=== PATIENT | male | born 1995 | race Caucasian/White ===

== ENCOUNTER 2016-09-11 17:28 | Emergency (ER) | payer OTHER ==
[~2016-09-11] VITALS: Ht 190.5 cm; Wt 83.3 kg
[2016-09-11] MEDS ORDERED: MoRPHine SULFATE 4 MG/ML 1 ML CARP\\VIAL ONE ×2 (17:35→20:00)
[2016-09-11] MEDS ORDERED: ONDANSETRON INJ 2 MG/ML 2 ML VIAL ONE (17:35)
[2016-09-11 17:36] VITALS: Ht 190.5 cm; Wt 83.3 kg
[2016-09-11 17:43] VITALS: O2SAT 100
[2016-09-11] MEDS ORDERED: ONDANSETRON INJ 2 MG/ML 2 ML VIAL IV PRN (17:45)
[2016-09-11] MEDS ORDERED: MoRPHine SULFATE 10 MG/ML CARP/VIAL IV PRN (17:45)
--- NOTE | 2016-09-11 17:52 | EMERGENCY ROOM VISIT NOTE ---
History Report prepared by Lux: Carmelo Noel Under the Supervision of: Dr. Orlando Jarrell M.D. First contact with patient: 17:35 Chief Complaint: ANKLE PAIN Stated Complaint: LF ANKLE FX History of Present Illness The patient is a 20 year old male who presents to the Emergency Room via ambulance with complaints of sudden left ankle pain due to a fall beginning just prior to arrival. The patient states he was playing basketball, when he landed on his left ankle wrong. EMS notes the patient received 100 Fentanyl prior to arrival. The patient notes he has sprained his ankles in the past. He denies any medical problems. The patient denies abdominal pain, hip pain, and any other medical complaints at this time. Review of Systems All systems have been listed, reviewed, and are negative other than those previously mentioned. Please see Additional Medical History Sheet. Past Medical & Surgical Medical Problems: (1) No pertinent past medical history Family History Diabetes mellitus Heart disease Hypertension Social History Marital Status: single Housing Status: lives with roommate Occupation Status: [employer] student Current/Historical Medications Scheduled PRN Hydrocodone/Acetaminophen 5MG/325MG (Dutton 5MG/325MG), 1-2 TABLETS PO Q4 PRN for Pain Allergies Coded Allergies: No Known Allergies (Unverified , 09/11/16) Physical Exam Vital Signs Date Time Temp Pulse Resp B/P Pulse Ox O2 Delivery O2 Flow Rate FiO2 09/11/16 20:39 36.7 89 20 137/78 100 09/11/16 20:07 89 20 137/78 100 Room Air 09/11/16 17:48 62 21 100 09/11/16 17:44 133/91 09/11/16 17:44 65 09/11/16 17:43 100 Room Air 09/11/16 17:43 148/109 09/11/16 17:36 36.7 67 18 146/100 97 Room Air Physical Exam GENERAL: Patient awake, alert, oriented x 3. Patient is in severe distress. Patient is adequately hydrated and well-nourished. SKIN: No erythema, pallor, cyanosis or rash HEENT: Normal head, pupils equal, reactive to light and accommodation. Oral cavity and posterior pharynx appear normal. LUNGS: Clear to auscultation. No wheezes, no rales, no rhonchi. HEART: No murmurs. No gallops. No rubs ABDOMEN: Soft, nontender. PELVIS: Nontender. EXTREMITIES: Left ankle is inverted with tenting of the skin. Pedal pulses present. NEUROLOGIC: Cranial nerves II-XII within normal limits. No gross motor sensory function deficits. Medical Decision & Procedures ER Provider Diagnostic Interpretation: X ray results are stated below per my interpretation and the radiologist's interpretation. LEFT ANKLE MIN 3 VIEWS ROUTINE CLINICAL HISTORY: Left ankle pain status post trauma COMPARISON: None DISCUSSION: There is an ankle dislocation with posterior and medial translation of the talus with respect to the tibia. No definite fractures are visualized in the provided images IMPRESSION: Ankle dislocation. Electronically signed by: Darwin Israel M.D. 09/11/2016 5:55 PM LEFT ANKLE 2 VIEWS CLINICAL HISTORY: Dislocation status post reduction COMPARISON: Earlier in the day DISCUSSION: There is been interval reduction of the previous described dislocation. No fractures are visualized the provided images. There is prominent lateral soft tissue swelling. IMPRESSION: Interval reduction of the previously described dislocation. Electronically signed by: Darwin Israel M.D. 09/11/2016 5:59 PM Medications Administered Medications (Trade) Dose Ordered Sig/Sean Route Start Time Stop Time Status Last Admin Dose Admin Ondansetron HCl (Zofran Inj) 4 mg STK-MED ONCE .ROUTE 09/11/16 17:35 09/11/16 17:37 DC 09/11/16 17:40 4 MG Morphine Sulfate (MoRPHine SULFATE INJ) 8 mg STK-MED ONCE .ROUTE 09/11/16 17:35 09/11/16 17:38 DC 09/11/16 17:41 8 MG Morphine Sulfate (MoRPHine SULFATE INJ) 8 mg STK-MED ONCE .ROUTE 09/11/16 20:00 09/11/16 20:02 DC 09/11/16 20:06 8 MG Acetaminophen/ Hydrocodone Bitart (Dutton 5/325mg Home Pack) 1 homepack UD ONCE PO 09/11/16 20:45 09/11/16 20:46 DC 09/11/16 20:47 1 HOMEPACK Procedure Reduction Procedure Note The patient was given 8 mg IV Morphine for pain relief. I briefly explain the procedure prior to gently pulling on the left foot and reducing the dislocation. Post-reduction x-ray reviews no fracture, dislocation, or subluxation. Pedal pulses were intact both pre and post-reduction. Patient tolerated procedure well and had almost complete relief of pain. ED Course 1735: Past medical records reviewed. The patient was evaluated in room C10. A complete history and physical examination was performed. 1744: Ordered Zofran Inj 4 mg IV, Morphine Sulfate 8 mg IV. 1819: I spoke to the patient's mother and updated her over the phone at this time. 1844: I spoke to [facility] (Orthopedic Surgery) about the patient's case, and he recommended placing the patient in a stirrup splint. He stated to have the patient call tomorrow morning for an appointment on Thursday. 1856: Reevaluated and updated the patient at this time. I explained the instructions for using the splint, crutches, and ice with the patient. 2032: Upon reevaluation, the patient appeared to have improvement of his symptoms. I discussed today's findings with him. He verbalized agreement of the treatment plan. The patient was discharged home. Medical Decision Nurses notes reviewed. Medical history sheet reviewed. Differential diagnosis includes but is not limited to: fracture, dislocation, subluxation of left ankle. The patient arrived here with the dislocated ankle after inverting his foot playing basketball. The skin was tented but not broken. Pedal pulse was intact. A quick x-ray was obtained revealing a dislocation. The patient was given IV morphine in the ankle was gently reduced without complication. Post reduction x-rays were obtained. No fractures were seen. The patient was placed in a splint and ice. He was also instructed on use of crutches. I discussed care with Dr. Graves over the phone. The patient will follow-up with Dr. Graves on Thursday. [place] Drug Monitoring Program Search Results: patient reviewed within database, no issues identified Consults Time Called: 1839 Consulting Physician: [facility] (Orthopedic Surgery) Returned Call: 1844 I spoke to [facility] (Orthopedic Surgery) about the patient's case, and he recommended placing the patient in a stirrup splint. He stated to have the patient call tomorrow morning for an appointment on Thursday. Impression Primary Impression: Dislocation of left ankle joint Scribe Attestation The scribe's documentation has been prepared under my direction and personally reviewed by me in its entirety. I confirm that the note above accurately reflects all work, treatment, procedures, and medical decision making performed by me. Departure Information Dispostion Home / Self-Care Prescriptions Hydrocodone/Acetaminophen 5MG/325MG (Dutton 5MG/325MG) Tab 1-2 TABLETS PO Q4 Y for Pain, #12 TAB PRN PAIN Prov: Orlando Jarrell M.D. 09/11/16 Forms HOME CARE DOCUMENTATION FORM, IMPORTANT VISIT INFORMATION Patient Instructions My [facility] Additional Instructions 1-2 Dutton every 4 hours as needed for moderate to severe pain. Do not drive or operate machinery while taking Dutton. Do not drink alcohol while taking Dutton. Call tomorrow for appointment with Dr. Graves on Thursday. Elevate your leg as much as possible. Do not bear any weight on your leg.
--- NOTE | 2016-09-11 17:56 | DIAGNOSTIC IMAGING REPORT ---
LEFT ANKLE MIN 3 VIEWS ROUTINE CLINICAL HISTORY: Left ankle pain status post trauma COMPARISON: None DISCUSSION: There is an ankle dislocation with posterior and medial translation of the talus with respect to the tibia. No definite fractures are visualized in the provided images IMPRESSION: Ankle dislocation. Electronically signed by: Darwin Israel M.D. 09/11/2016 5:55 PM Dictated Date/Time: 09/11/2016 5:54 PM
--- NOTE | 2016-09-11 18:00 | DIAGNOSTIC IMAGING REPORT ---
LEFT ANKLE 2 VIEWS CLINICAL HISTORY: Dislocation status post reduction COMPARISON: Earlier in the day DISCUSSION: There is been interval reduction of the previous described dislocation. No fractures are visualized the provided images. There is prominent lateral soft tissue swelling. IMPRESSION: Interval reduction of the previously described dislocation. Electronically signed by: Darwin Israel M.D. 09/11/2016 5:59 PM Dictated Date/Time: 09/11/2016 5:58 PM
[2016-09-11] MEDS ORDERED: HYDR-5688 PO (20:28)
[2016-09-11 20:39] VITALS: BP 137/78; PULSE 89; TEMP 36.7; O2SAT 100
[2016-09-11] MEDS ORDERED: NORCO 5/325MG HOME PACK PO ONE (20:45)
== END 2016-09-11 20:40 | disposition home or self-care (01) ==
LOC: C.EDC 17:31
DX: S93.02XA Subluxation of left ankle joint, initial encounter (principal); Y93.67 Activity, basketball; Y92.310 Basketball court as the place of occurrence of the external cause